=== PATIENT | female | born 1990 | race Caucasian/White ===

== ENCOUNTER 2020-12-16 08:31 | Emergency (ER) | payer OTHER ==
[2020-12-16] MEDS ORDERED: Lidocaine 1% w/Epinephrine 1:100K 20 ML VIAL ONE (08:57)
[2020-12-16] MEDS ORDERED: Oseltamivir 75 MG CAP ONE (09:28)
[2020-12-16] MEDS ORDERED: Boostrix 0.5 ML (Tdap) VIAL ONE (09:28)
== END 2020-12-16 09:53 | disposition home or self-care (01) ==
LOC: MADERS 08:31
DX: S90.851A Superficial foreign body, right foot, initial encounter (principal); L73.9 Follicular disorder, unspecified; F17.210 Nicotine dependence, cigarettes, uncomplicated; Z79.899 Other long term (current) drug therapy; W45.8XXA Other foreign body or object entering through skin, initial encounter
CPT/HCPCS: 28190; 90471; 90715

== ENCOUNTER 2021-03-10 10:38 | Outpatient (CLI) | payer OTHER ==
[2021-03-10 11:33] LABS: Amphetamine Detected (NotDetected); Barbiturates Screen Not Detected (NotDetected); Benzodiazepine Screen Not Detected (NotDetected); Cocaine Metabolite Screen Not Detected (NotDetected); Medtox Control Line Valid? VALID (VALID); Methadone Not Detected (NotDetected); Methamphetamine Not Detected (NotDetected); Opiate Screen Not Detected (NotDetected); Oxycodone Screen Not Detected (NotDetected); Phencyclidine (PCP) Not Detected (NotDetected); THC/Cannabinoid Screen Not Detected (NotDetected); Tricyclic Screen Not Detected (NotDetected)
== END 2021-03-10 10:39 | disposition home or self-care (01) ==
LOC: MADLAB 10:38
PROVIDERS: ATTEND Family Medicine
DX: F90.2 Attention-deficit hyperactivity disorder, combined type (principal); F41.8 Other specified anxiety disorders
CPT/HCPCS: 80306